=== PATIENT | male | born 1965 | race Caucasian/White ===

== ENCOUNTER 2017-09-25 09:44 | Day surgery (SDC) | payer OTHER ==
[2017-09-21 14:21] VITALS: BMI 28.7
[2017-09-25] MEDS ORDERED: BUPIVACAINE HCL/EPINEPHRINE/PF 30 ML VIAL IJ ONE (11:10)
[2017-09-25] MEDS ORDERED: BUPIVACAINE HCL/PF 2.5 MG/ML - 30 ML VIAL IJ ONE (11:22)
[2017-09-25] MEDS ORDERED: oxyCODONE HCL 5 MG TABLET PO PRN (12:30)
[2017-09-25] MEDS ORDERED: ONDANSETRON 4 MG/2 ML VIAL IVPUSH PRN (12:30)
[2017-09-25] MEDS ORDERED: LACTATED RINGERS SOLUTION 1,000 ML IV SCH (12:30)
[2017-09-25] MEDS ORDERED: MIDAZOLAM HCL 2 MG/2 ML SINGLE DOSE VIAL ONE (12:53)
[2017-09-25] MEDS ORDERED: PROPOFOL 20 ML ONE ×3 (13:03→13:36)
[2017-09-25] MEDS ORDERED: SUCCINYLCHOLINE CHLORIDE 200 MG/10 ML VIAL ONE (13:04)
[2017-09-25] MEDS ORDERED: ONDANSETRON 4 MG/2 ML VIAL ONE ×2 (13:06→13:57)
[2017-09-25] MEDS ORDERED: DEXAMETHASONE SOD PHOSPHATE 4 MG/1 ML VIAL ONE (13:06)
[2017-09-25] MEDS ORDERED: ceFAZolin SODIUM 1 GM VIAL ONE (13:06)
[2017-09-25] MEDS ORDERED: BUPIVACAINE HCL/PF 0.25% (2.5MG/ML) 10 ML VIAL IJ ONE (13:17)
[2017-09-25] MEDS ORDERED: TRANEXAMIC ACID 1000 MG/10 ML VIAL ONE (13:36)
--- NOTE | 2017-09-25 13:53 | OP ---
Operative Note - Note: Operative Date: 09/25/17 Pre-Operative Diagnosis: right knee MMT Operation: RKA, synovectomy, plica excision, PMM Post-Operative Diagnosis: Same as Pre-op Surgeon: Jose Wade Anesthesia: General Operative Report Dictated: Yes
--- NOTE | 2017-09-25 13:54 | DS ---
Physical Examination Vital Signs: Vital Signs Temperature 97.9 F 09/25/17 10:02 Pulse Rate 61 09/25/17 10:02 Respiratory Rate 18 09/25/17 10:02 Blood Pressure 134/78 09/25/17 10:02 O2 Sat by Pulse Oximetry (%) 98 09/25/17 10:02 Discharge Summary Reason For Visit: MEDIAL MENISCAL TEAR RIGHT KNEE Condition: Good - Instructions Diet, Activity, Other Instructions: Post Operative Instructions: Knee Arthroscopy Dr Jose Wade 1. Pain following an arthroscopy is variable. Some patients will have more pain than others. You have been provided with a prescription for medication that contains a narcotic. You are not allowed to drive while on this medication. You should NOT take Tylenol (Acetaminophen) when taking the pain medication ( it will result in an overdose). Feel free to take medications such as Ibuprofen or Naprosyn in addition to the pain medicine if you do not have any problems with the NSAID class of medications. 2. You are allowed to remove the bandages and shower in 24-36 hours. You are not allowed to bathe or go swimming for 2 weeks. Put band-aids on the incisions after your shower and do not put any creams or lotions over the incisions. 3. You are allowed to put all your weight on the leg and bend your knee 4. Apply ice to the knee for 15 min every hour or so. You may continue this for as many days as you like. 5. Please call the office to schedule a visit to have your sutures removed. 6. If for any reason you believe you may have an infection or are concerned, please feel free to call me. I can be reached through our office number 24 hours a day. 7. Please call our office with any questions; we will review the surgical findings during your post operative visit. 8. Aspirin 81 mg twice a day for one week to decrease blood clot risk. Disposition: HOME - Home Medications Comprehensive Discharge Medication List: Ambulatory Orders Amlodipine Besylate 10 mg PO DAILY 09/21/17 Benazepril-Hctz 20-25 mg Tab 1 each PO DAILY 09/21/17 Levothyroxine [Synthroid -] 112 mcg PO DAILY 09/21/17 Metformin HCl [Glucophage] 1,000 mg PO BID 09/21/17
[2017-09-25 14:42] VITALS: TEMP 97.5
[2017-09-25 15:40] VITALS: BP 114/78; PULSE 53
== END 2017-09-25 15:40 | disposition home or self-care (01) ==
LOC: FASU 09:44
PROVIDERS: ATTEND Orthopaedic Surgery
PROC: 0SBC4ZZ Excision of Right Knee Joint, Percutaneous Endoscopic Approach (ICD-10-PCS; principal; 2017-09-25 13:19)
DX: S83.241A Other tear of medial meniscus, current injury, right knee, initial encounter (principal); M65.861 Other synovitis and tenosynovitis, right lower leg; M67.51 Plica syndrome, right knee; X58.XXXA Exposure to other specified factors, initial encounter; Y93.89 Activity, other specified; Y92.89 Other specified places as the place of occurrence of the external cause
CPT/HCPCS: 82962; 94760